=== PATIENT | male | born 1940 | race Caucasian/White ===

== ENCOUNTER → 2018-09-21 | Outpatient (CLI) | payer OTHER ==
--- NOTE | 2018-09-21 15:15 | 2DMMODE ---
[facility] [place] [address] 2 D/M-MODE ECHOCARDIOGRAM Name: ALIXANASTASIA CONTE Room #: REG [facility]#: [id number] Admission: 09/21/18 Attend Phys: Ignacio Kamara MD Discharge: Date of : 44 Date of Service: 09/21/18 1355 Report #: [id number] THIS REPORT FOR: //name// APPROVED REPORT Study performed: 09/21/2018 12:54:46 EXAM: Comprehensive 2D, Doppler, and color-flow Echocardiogram Patient Location: Out-Patient Room #: Echo lab 2 Status: routine BSA: 1.94 HR: 46 bpm BP: 154/88 mmHg Rhythm: Bradycardia Other Information Study Quality: Good Indications Chest Pain Hypertension/HDD 2D Dimensions RVDd: 31.53 mm IVSd: 8.83 (7-11mm) LVOT Diam: 20.04 (18-24mm) LVDd: 52.93 mm PWd: 8.97 (7-11mm) Ascending Ao: 31.65 (22-36mm) LVDs: 30.11 (25-40mm) Aortic Root: 35.62 mm IVC: 15.00 mm Volumes Left Atrial Volume (Systole) Single Plane 4CH: 47.04 mL Single Plane 2CH: 67.44 mL LA ESV Index: 37.00 mL/m2 Aortic Valve AoV Peak Ki.: 1.26 m/s AO Peak Gr.: 6.34 mmHg LVOT Max P.95 mmHg LVOT Max V: 1.32 m/s BELLE Vmax: 3.30 cm2 AI Vmax: 5.05 m/s AI Alcorn: 2.38 m/s2 AI PHT: 616.02 ms Mitral Valve [facility] [address] [place] [address] 2 D/M-MODE ECHOCARDIOGRAM Name: ANASTASIA THOMSON Room #: REG [facility]#: [id number] Admission: 09/21/18 Attend Phys: Ignacio Kamara MD Discharge: Date of : 44 Date of Service: 09/21/18 1355 Report #: [id number] E/A Ratio: 0.9 MV Decel. Time: 213.90 ms MV E Max Ki.: 0.82 m/s MV A Ki.: 0.87 m/s MV PHT: 62.03 ms IVRT: 133.79 ms Pulmonary Valve PV Peak Ki.: 1.04 m/s PV Peak Gr.: 4.32 mmHg Pulmonary Vein P Vein S: 0.31 m/s P Vein A: 0.26 m/s P Vein D: 0.49 m/s P Vein A Dur.: 156.9 msec P Vein S/D Ratio: 0.63 Tricuspid Valve TR Peak Ki.: 2.48 m/s TR Peak Gr.: 24.63 mmHg PA Pressure: 30.00 mmHg Left Ventricle The left ventricle is normal size. There is normal LV segmental wall motion. There is normal left ventricular wall thickness. The left ventricular systolic function is normal. The left ventricular ejection fraction is within the normal range. LVEF is 60-65%. Grade I - abnormal relaxation pattern. Right Ventricle The right ventricle is normal size. The right ventricular systolic function is normal. Atria Left atrium is dilated. Right atrium is at the upper limits of normal. Aortic Valve The aortic valve is normal in structure. Aortic valve is calcified. Mild to moderate aortic regurgitation. There is no aortic valvular stenosis. Mitral Valve The mitral valve is normal in structure. Moderate eccentric mitral regurgitation. No evidence of mitral valve stenosis. There is mild mitral valve prolapse. [address] [address] 2 D/M-MODE ECHOCARDIOGRAM Name: ALIXANASTASIA INÉS Room #: REG CL [facility]#: [id number] Admission: 09/21/18 Attend Phys: Ignacio Kamara MD Discharge: Date of : 44 Date of Service: 09/21/18 1355 Report #: [id number] Tricuspid Valve The tricuspid valve is normal in structure. There is mild tricuspid regurgitation. Estimated PAP 30 mmHg. There is no pulmonary hypertension. Pulmonic Valve The pulmonary valve is normal in structure. There is no pulmonic valvular regurgitation. Great Vessels The aortic root is normal in size. IVC is normal in size and collapses >50% with inspiration. Pericardium There is no pericardial effusion. <Conclusion> The left ventricle is normal size. There is normal left ventricular wall thickness. The left ventricular systolic function is normal. Grade I - abnormal relaxation pattern. The right ventricle is normal size. Left atrium is dilated. The aortic valve is normal in structure. Aortic valve is calcified. Mild to moderate aortic regurgitation. There is mild mitral valve prolapse. Moderate eccentric mitral regurgitation. There is mild tricuspid regurgitation. Estimated PAP 30 mmHg. <ELECTRONICALLY SIGNED> By: Ignacio Kamara MD 09/21/18 1355 1355 1355 Ignacio Kamara MD /INF
== END ==
LOC: NUC 11:45
DX: I08.3 Combined rheumatic disorders of mitral, aortic and tricuspid valves (principal); I10 Essential (primary) hypertension

== ENCOUNTER → 2019-06-26 | Outpatient (CLI) | payer OTHER ==
[~2019-06-26] VITALS: Ht 177.8 cm; Wt 33.5 kg
[~2019-06-26] MED LIST: AMBIEN5 MG PO; HYDROCHLOROTHIA25 M2 PO; LISINOPRIL2.5 MG PO
[2019-06-26 10:44] LABS: HEMATOCRIT 39.1 % (42.0-52.0); HEMOGLOBIN 13.2 gm/dL (14.0-18.0); MCH 31.8 pg (26.0-34.0); MCHC 33.8 g/dL (28.0-37.0); MCV 94.1 fL (80.0-100.0); RBC 4.15 mil/uL (4.50-6.00); RDW 12.9 % (10.5-14.5); WBC 6.3 thou/uL (4.0-11.0)
[2019-06-26 10:54] VITALS: BP 125/70
[2019-06-26 10:59] LABS: CALCIUM 9.5 mg/dL (8.5-10.1); CREATININE 1.3 mg/dL (0.7-1.3)
--- NOTE | 2019-06-26 13:52 | CATHLAB ---
[facility] [address] [place] [address] INVASIVE PROCEDURE REPORT Name: ANASTASIA THOMSON Room #: REG [facility]#: [id number] Admission: 06/26/19 Attend Phys: Ignacio Kamara MD Discharge: Date of : 44 Report #: [id number] THIS REPORT FOR: //name// APPROVED REPORT Study performed: 06/26/2019 12:11:45 Patient Details Patient Status: Out-Patient Room #: The patient is a 79 year-old male Event Personnel Ignacio Kamara Cylinder Press Operator Apprentice, Sherice Ramirez RTR, CAGE TENDER Monitor, Johnny Sutherland RN, Viri Galloway RTR Scrub Procedures Performed Art Access - R radial artery Left Heart Cath w/or w/o Coronaries [id number] [facility] [id number] Initial Mod Sed Same Phys/QHP Gr5y 221805 Hemostasis with Hemoband Indication Dyspnea, Chest pain Risk Factors HypercholesterolemiaPhysical Activity, Hypertension Procedure Narrative The Right Wrist^ was infiltrated with 1% Lidocaine subcutaneous anesthesia. A TRANSRADIAL SLENDER 6F GLIDESHEATH KIT #[id number] sheath was inserted into the Right Radial Artery^. Coronary angiography was performed using coronary diagnostic catheters. The right coronary system was accessed and visualized with a JR4 catheter. The left coronary system was accessed and visualized with a JL3.5 catheter. The left ventricle was accessed and visualized with a angled pigtail catheter. Left ventricular/Aortic Valve gradient assessed via catheter pullback. Left ventriculogram was performed in 30 degree projection. The patient tolerated the procedure well and there were no complications associated with the procedure. There was no hematoma. Hemostasis was obtained with a VascBand. Intraoperative Conscious Sedation Sedation start time: 12:30 Case end Time: 12:56 Fentanyl 50 mcg Versed [address] [address] INVASIVE PROCEDURE REPORT Name: ANASTASIA THOMSON Room #: REG [facility]#: [id number] Admission: 06/26/19 Attend Phys: Ignacio Kamara MD Discharge: Date of : 44 Report #: [id number] Fluoro Time: 3.00 minutes Dose: DAP 3225.20 cGycm2 373 mGy Contrast Type and Amount: Visipaque 85 ml Coronary Angiography The patient's coronary anatomy is right dominant. Diagnostic Cath Left Main This is a large caliber vessel, patent with no flow-limiting lesions. LAD This is a moderate size caliber vessel, traversing the anterior wall and wrapping around the apex. There is a mild stenosis with calcification in the proximal segment, 20%. The mid segment has a discrete mild stenosis, 30%. Diagonal 1 This is a patent vessel, with no flow-limiting lesions. Diagonal 2 This is a patent vessel, with no flow-limiting lesions. Circumflex Supplies 2 obtuse marginal arteries. OM1 This is a moderate size caliber vessel, patent with no flow-limiting lesions. Supplies multiple branches as it travels down the lateral wall. OM2 This is a patent vessel, with no flow-limiting lesions. Right Coronary This is a dominant vessel, with mild disease in the midsegment, 10%. R PDA This is a patent vessel, with no flow-limiting lesions. RPLV This is a patent vessel, with no flow-limiting lesions. Left Ventriculography The left ventricle is normal in size with normal contractility. The left ventricular ejection fraction is estimated to be 55-60%. Hemodynamics The aortic pressure is 110/56 mmHg with a mean of 79 mmHg. The left ventricular pressure is 109/5 mmHg with a mean of mmHg. The left ventricular end diastolic pressure is 12 mmHg. Conclusion 1. 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 2. Right dominant system. [facility] [address] [address] INVASIVE PROCEDURE REPORT Name: ANASTASIA THOMSON Room #: REG [facility]#: [id number] Admission: 06/26/19 Attend Phys: Ignacio Kamara MD Discharge: Date of : 44 Report #: [id number] 3. Normal LV systolic function. 4. Recommend aggressive risk factor management. <ELECTRONICALLY SIGNED> By: Ignacio Kamara MD 06/26/19 1351 1351 135 Ignacio Kamara MD /INF
--- NOTE | 2019-06-27 08:05 | EKG ---
[address] [place] [employer] [place] [address] ELECTROCARDIOGRAM REPORT Name: ANASTASIA THOMSON [id number] Admission: 06/26/19 Attend Phys: Ignacio Kamara MD Discharge: Date of : 44 Report #: [id number] THIS REPORT FOR: //name// [facility] Test Date: 2019-06-26 Test Time: 10:27:16 Pat Name: ANASTASIA THOMSON Department: Room: Gender: Operations Asst: Jenaro ARANDA : 1940 Requested By: Ignacio Kamara Order Number: [id number] MD: Joel Sanchez Measurements Intervals Osborn Rate: 48 P: -20 NV: 227 QRS: -5 QRSD: 96 T: 43 QT: 458 QTc: 410 Interpretive Statements Sinus bradycardia Prolonged NV interval No previous ECG available for comparison Electronically Signed On 06-27-2019 8:05:38 CDT by Joel Sanchez [email or web address] <ELECTRONICALLY SIGNED> By: Joel Sanchez MD, [facility] 06/27/19 0805 1027 1027 Joel Sanchez MD, FACC /EPI
== END | disposition home or self-care (01) ==
LOC: CATH 09:46
PROVIDERS: Internal Medicine Cardiovascular Disease
DX: R07.9 Chest pain, unspecified (principal); I25.10 Atherosclerotic heart disease of native coronary artery without angina pectoris; I10 Essential (primary) hypertension; E78.00 Pure hypercholesterolemia, unspecified; Z79.899 Other long term (current) drug therapy; Z98.890 Other specified postprocedural states

== ENCOUNTER 2019-08-09 05:50 | Inpatient (IN) | payer OTHER ==
[2019-07-30 14:14] LABS: HEMATOCRIT 38.9 % (42.0-52.0); HEMOGLOBIN 13.1 gm/dL (14.0-18.0); MCH 31.4 pg (26.0-34.0); MCHC 33.7 g/dL (28.0-37.0); MCV 93.4 fL (80.0-100.0); RBC 4.16 mil/uL (4.50-6.00); RDW 13.2 % (10.5-14.5); WBC 5.3 thou/uL (4.0-11.0)
[2019-07-30 14:15] LABS: URINE BILIRUBIN NEGATIVE (Negative); URINE BLOOD 2+ (Negative); URINE CLARITY CLEAR; URINE COLOR YELLOW; URINE GLUCOSE-RANDOM* NEGATIVE (Negative); URINE KETONES NEGATIVE (Negative); URINE LEUKOCYTES-REFLEX NEGATIVE (Negative); URINE NITRITE-REFLEX NEGATIVE (Negative); URINE PROTEIN (DIPSTICK) NEGATIVE (Negative); URINE UROBILINOGEN 0.2 E.U./dl (0.2-1.0)
[2019-07-30 14:22] LABS: ALBUMIN 3.6 g/dL (3.4-5.0); CALCIUM 9.5 mg/dL (8.5-10.1); CREATININE 1.3 mg/dL (0.7-1.3); POTASSIUM 4.3 mmol/L (3.5-5.1)
[2019-07-30 14:26] LABS: BACTERIA-REFLEX None Seen /HPF (None Seen); CASTS None Seen /LPF (None Seen); CRYSTALS None Seen /LPF (None Seen); INR 1.1; PROTIME 11.1 Seconds (9.3-11.4); SQUAMOUS 0-3 Few /LPF (0-3); URINE RBC 0-2 Rare /HPF (0-2); URINE WBC-REFLEX None Seen /HPF (0-5)
[~2019-08-09] VITALS: Ht 177.8 cm; Wt 73.0 kg
[2019-08-09] VITALS (7 sets, daily range): BP systolic 93–125; BP diastolic 48–62
--- NOTE | ~2019-08-09 | D ---
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 He remains fully active and fully independent. He has progressive left hip pain. Clinical and x-ray findings are consistent with severe end-stage degenerative arthritis. He has elected to go ahead with total hip arthroplasty and is committed to resuming full and vigorous activity as quickly as possible. HOSPITAL COURSE: The patient was admitted and taken to the operating room on 08/09/2019. He underwent left total hip replacement, which he tolerated quite nicely. Postoperatively, he has minimal discomfort and is managing on oral pain meds. He is already back to a full and regular diet without much difficulty. The Hemovac had about 300 mL out. His hemoglobin is satisfactory at 10.0. His vital signs are stable. He is passed physical therapy already and is functionally independent. He is using a walker for balance, but actually is full weightbearing and minimal discomfort. He and family are anxious for hospital discharge home today. I have advised him to be cautious with activity and suggested he might wish to spend one more day, but he and family feel he is safe and fully independent and wished to go ahead with hospital discharge today. His discharge medications include hydrochlorothiazide 25 mg daily, lisinopril 10 mg daily, hydrocodone 5 mg every 4-6 hours p.r.n. for pain and Xarelto 10 mg daily. I have asked him to call me if there are any problems or questions. We can see him in the office next week for routine followup and the following week for suture removal. By: 1450 0054 Naga Pyle MD /nt
[~2019-08-09 05:50] MED LIST changes: +LISINOPRIL20 MG PO; +VITAMIN B-12500 MC5 PO; +VITAMIN D325 MC1 PO
--- NOTE | 2019-08-09 13:42 | NUR ---
ASSESSMENT-PT LIVES ALONE IN HIS HOME. HE HAS BEEN USING A CANE TO GET AROUND AND DOES HIS OWN ADLS. HE LIVES IN A [place]PL[place] LEVEL HOME AND HAS 4 OTHER STEPS TO THE LAUNDRY. PT HAS 8 CHILDREN IN [facility] [place]. DTR ALIZE AT BEDSIDE NOW. HE HAS A NIECE THAT IS HOME FROM [place] CURRENTLY STAYING WITH HIM THAT CAN ASSIST. PT DRIVES. PT PLANS TO GO TO [facility] AND HAS NOT HAD ANY HH SERVICES IN THE PAST. PT HAS A SHOWER CHAIR AND TOILET RISER THAT A FRIEND LOANED HIM. FOLLOWING TO ASSIST WITH DC PLANNING. PT WILL NEED A ROLLER WALKER FOR HOME.
--- NOTE | 2019-08-09 15:24 | NUR ---
PT. ARRIVED THE FLOOR AT 1053. A&Ox4. DAUGHTER AT BEDSIDE. PT. WAS IN A LOT OF PAIN. MORPHINE WAS GIVEN WITH NO PAIN CONTROLL. ONE MORE DOSE OF MORPHINE WAS GIVEN WITH HYDROCODINE WITH A PARTIAL PAIN RELIEF. PT. REPOSITIONED FOR MORE COMFORT. PT. EVALUATED FOR POSSIBLE DISCHARGE TOMORROW. FLUIDS RUNNING. IV FLUSHING WITH SIGNS OF REDNESS OR EDEMA. ONE DOSE OF ANTIBIOTICS GIVEN. CONSULT CALLED IN TO DR. HAMPTON PER DR. HAMPTON REQUEST. PT. RESTING. CALL LIGHT IN REACH. BED LOCKED AND IN LOW POSITION.
--- NOTE | 2019-08-10 03:24 | NUR ---
ASSUMED PT CARE AT 1900. GIVEN HYDROCODONE FOR PAIN, PROVIDED RELIEF. UP TO BATHROOM, TROUBLE URINATING. SCANNED BLADDER REFLECTED 505ML AT BEGINNING THEN PT VOIDED RIGHT AFTER. WILL CONTINUE TO MONITOR OUTPUT. HEMOVAC DRAINING WELL. DRESSING HAD FRESH BLOOD AT BEGINNING OF SHIFT, HAS BEEN MONITORED AND NO CHANGE. ANTIBIOTIC HUNG, FLUIDS RUNNING AT 100. PT DID NOT SLEEP MUCH, BUT READ QUIETLY IN BED.
[2019-08-10 03:30] VITALS: BP 89/52
[2019-08-10 06:07] LABS: BASOPHILS 0.1 % (0.0-2.0); HEMATOCRIT 29.1 % (42.0-52.0); LYMPHOCYTES 23.1 % (24.0-44.0); MCH 32.6 pg (26.0-34.0); MCHC 34.4 g/dL (28.0-37.0); MCV 94.6 fL (80.0-100.0); MONOCYTES 8.5 % (1.0-8.0); PLATELET COUNT 185 thou/uL (150-400); POLYS 68.3 % (36.0-66.0); RBC 3.08 mil/uL (4.50-6.00); RDW 13.1 % (10.5-14.5); WBC 8.8 thou/uL (4.0-11.0)
[2019-08-10 06:15] LABS: CALCIUM 8.8 mg/dL (8.5-10.1); CREATININE 1.4 mg/dL (0.7-1.3); MAGNESIUM 1.5 mg/dL (1.8-2.4); POTASSIUM 4.4 mmol/L (3.5-5.1)
[2019-08-10 07:10] VITALS: BP 100/55
--- NOTE | 2019-08-10 12:51 | NUR ---
Assumed pt care at 7am.Pt in bed resting and waiting for physical tharapist to assist with ambulation cleared for dc home today.Assessment completed.vss but low bp noted.Dr Reed rounded on pt and bolus ns ordered.Pt tolerated meds and diet.Pt ambulated with pt on hallways and stairs.Pt was cleared and will dc home later this afternoon after seen by Dr Pyle or his SMALL ENGINE TRAINER.Pt up chair at present resting without c/o.Will continue to monitor.
--- NOTE | 2019-08-10 14:34 | O ---
[facility] [place] [address] OPERATIVE REPORT Name: ANASTASIA THOMSON Room #: 434-P ADM IN M.R.#: [id number] Admission: 08/09/19 Attend Phys: Naga Pyle MD Discharge: Date of : 44 Report #: [id number] THIS REPORT FOR: //name// CC: Naga Izquierdo DATE OF SERVICE: 08/09/2019 PREOPERATIVE DIAGNOSIS: End-stage degenerative arthritis, left hip. POSTOPERATIVE DIAGNOSIS: End-stage degenerative arthritis, left hip. PROCEDURE: Left total hip arthroplasty. SURGEON: Naga Pyle MD INDICATIONS: This slender, fit and very active and fully independent 79-year-old gentleman presents with progressive left hip pain. Clinical exam and x-rays confirm severe end-stage degenerative arthritis. He has elected to go ahead with total hip arthroplasty. DESCRIPTION OF PROCEDURE: The patient was taken to the operating room where he was placed under general anesthesia. Prophylactic intravenous antibiotics were administered. He was turned to the right lateral decubitus position. The left hip, thigh and leg were meticulously prepped and draped. A slightly curving posterolateral skin incision was made and carried through the fascia, exposing the posterior aspect of the hip. The short external rotators and capsule were taken down and preserved and tagged with several FiberWire sutures. The hip was dislocated. Marked degenerative change on both the femoral head and acetabulum was noted. A femoral neck osteotomy was performed and the canal was opened with reamers and hand broaches. The Clarke and Nephew hip system was utilized and a size 13 stem seemed to fit most appropriately. The trial stem was removed and attention directed to the acetabulum. Good exposure was established and the acetabulum was sequentially reamed, gradually advancing to a 54 mm reamer. A Clarke and Nephew 54 mm 3-hole StikTite shell was then inserted. This was positioned in alignment with his true acetabulum, which placed this in about 45 degrees off of vertical and about 20 degrees of anteversion. It seated nicely and appeared to be secure. In addition, three cancellous screws were placed through the apical holes with good periacetabular purchase. A 36-mm polyethylene liner was then inserted, positioning the 20-degree elevated rim at about the 10 o'clock posterior position. It seated nicely and appeared to be secure. A size 13 Clarke and Nephew Synergy porous high offset hip stem was then inserted, positioning this in about 20 degrees of anteversion. It seated nicely and appeared to be secure. Trial reduction was performed and a +0 neck length with a 36 mm head size fit nicely. This resulted in good range of motion, alignment, stability and leg length. The permanent 36 mm cobalt chrome head was [address] [address] OPERATIVE REPORT Name: ANASTASIA THOMSON Room #: 434-P [facility] IN M.R.#: [id number] Admission: 08/09/19 Attend Phys: Naga Pyle MD Discharge: Date of : 44 Report #: [id number] inserted with a +0 neck length. This was impacted on the Addison taper. It seated nicely and appeared to be secure. The hip was trialled and the hip seemed to be stable with satisfactory leg length. The wound was copiously irrigated. Good hemostasis was established. The capsule and short external rotators were then repaired back to bone using the FiberWire sutures passed through drill holes in the greater trochanter, this added nicely to hip stability. A single Hemovac was left in the wound exiting through a separate stab incision. The fascia was closed with multiple #1 Vicryl sutures. The subcutaneous tissues were closed with 0 Monocryl. The skin was closed with skin coleen. A sterile dressing was applied. The patient was awakened and returned to recovery room in good condition. <ELECTRONICALLY SIGNED> By: Naga Pyle MD 08/10/19 1434 0919 0948 Naga Pyle MD /nt
[2019-08-10 14:52] VITALS: BP 100/55
== END 2019-08-10 11:51 | disposition home or self-care (01) | DRG 470 ==
LOC: PRE → 4S 05:50 → TBA 05:50 → PRE 07:51 → 4S 10:59 → PRE 13:29 → 4S 08-10 11:51 → ENTRNSPT 08-10 15:13 → EDTRNSPTSTS 08-10 15:14
PROVIDERS: Nurse Practitioner; ADMIT Orthopaedic Surgery
PROC: 0SRB0JZ Replacement of Left Hip Joint with Synthetic Substitute, Open Approach (ICD-10-PCS; principal; 2019-08-09)
DX: M16.12 Unilateral primary osteoarthritis, left hip (principal); I10 Essential (primary) hypertension; M48.00 Spinal stenosis, site unspecified; E53.8 Deficiency of other specified B group vitamins; E55.9 Vitamin D deficiency, unspecified; F41.9 Anxiety disorder, unspecified; F32.9 Major depressive disorder, single episode, unspecified; C44.90 Unspecified malignant neoplasm of skin, unspecified; M17.0 Bilateral primary osteoarthritis of knee; Z79.891 Long term (current) use of opiate analgesic; Z79.899 Other long term (current) drug therapy
CPT/HCPCS: 10102; 50010; 50101; 50382; 50414; 51412; 53000; 53367; 56521; 56525; 56530; 57095; 62110; 62900; 70005

== ENCOUNTER → 2020-04-29 | Outpatient (CLI) | payer OTHER | LOC: SJCVC 14:43 | PROVIDERS: ATTEND Internal Medicine Cardiovascular Disease | DX: I25.10 Atherosclerotic heart disease of native coronary artery without angina pectoris (principal); R00.1 Bradycardia, unspecified; I44.0 Atrioventricular block, first degree; I10 Essential (primary) hypertension; I05.9 Rheumatic mitral valve disease, unspecified; Z79.899 Other long term (current) drug therapy; Z87.891 Personal history of nicotine dependence ==

== ENCOUNTER → 2020-10-28 | Outpatient (CLI) | payer OTHER | LOC: SJCVCIMAG 07:36 | PROVIDERS: ATTEND Internal Medicine Cardiovascular Disease | DX: R94.31 Abnormal electrocardiogram [ECG] [EKG] (principal); I08.3 Combined rheumatic disorders of mitral, aortic and tricuspid valves; I11.9 Hypertensive heart disease without heart failure; I44.0 Atrioventricular block, first degree; I25.10 Atherosclerotic heart disease of native coronary artery without angina pectoris; R00.1 Bradycardia, unspecified; Z79.82 Long term (current) use of aspirin; Z79.899 Other long term (current) drug therapy; Z88.1 Allergy status to other antibiotic agents; Z87.891 Personal history of nicotine dependence; Z72.89 Other problems related to lifestyle ==

== ENCOUNTER → 2021-08-19 | Outpatient (CLI) | payer OTHER | LOC: SJCVC 14:04 | PROVIDERS: ATTEND Internal Medicine Cardiovascular Disease | DX: R94.31 Abnormal electrocardiogram [ECG] [EKG] (principal); I48.91 Unspecified atrial fibrillation; I25.10 Atherosclerotic heart disease of native coronary artery without angina pectoris; I05.9 Rheumatic mitral valve disease, unspecified; I10 Essential (primary) hypertension; R00.1 Bradycardia, unspecified; E78.00 Pure hypercholesterolemia, unspecified; F41.9 Anxiety disorder, unspecified; Z88.8 Allergy status to other drugs, medicaments and biological substances; Z79.82 Long term (current) use of aspirin; Z79.899 Other long term (current) drug therapy; Z87.891 Personal history of nicotine dependence; Z72.89 Other problems related to lifestyle; Z82.49 Family history of ischemic heart disease and other diseases of the circulatory system ==